=== PATIENT | male | born 1970 | race Caucasian/White ===

== ENCOUNTER 2022-04-19 02:42 | Emergency (ER) | payer OTHER, SELFPAY ==
--- NOTE | 2022-04-19 | ECG_ITS ---
Test Reason : SYNCOPE Blood Pressure : / mmHG Vent. Rate : 086 BPM Atrial Rate : 086 BPM P-R Int : 170 ms QRS Dur : 092 ms QT Int : 374 ms P-R-T Axes : 047 063 053 degrees QTc Int : 447 ms Normal sinus rhythm Normal ECG No previous ECGs available Referred By: Generic ED Physician Electronically Signed By:Kervin Joseph
[2022-04-19 02:47] VITALS: BP 109/70; BP 123/81; PULSE 86; PULSE 90; RESP 16; TEMP 36.5; O2SAT 97; O2SAT 99; BMI 20.9
[2022-04-19] MEDS: 0.9 % Sodium Chloride 1,000 ML 999 ML IV (03:57)
[2022-04-19 04:02] LABS: MANUAL DIFF FLAG NO
[2022-04-19 04:03] LABS: Basophils Percent Auto 0.5 % (0-2); Eosinophils Absolute Auto 0.1 X10*3/uL (0.0-0.4); Eosinophils Percent Auto 1.6 % (0-4); Hematocrit 42.2 % (42.0-52.0); Hemoglobin 14.4 g/dl (14.0-18.0); Imm Gran Abs Auto 0.03 X10*3/uL (0.00-0.03); Imm Gran Pct Auto 0.3 % (0.0-0.4); Lymphocytes Absolute Auto 0.8 X10*3/uL (1.2-4.9); Lymphocytes Percent Auto 8.9 % (20-40); Mean Corpuscular HGB Conc 34.1 g/dl (31.0-36.0); Mean Corpuscular Hemoglobin 31.1 pg (27.0-33.0); Mean Corpuscular Volume 91.1 fL (80.0-98.0); Mean Platelet Volume 10.3 fL (9.4-12.4); Monocytes Absolute Auto 0.8 X10*3/uL (0.1-1.2); Monocytes Percent Auto 9.2 % (2-11); Neutrophils Absolute Auto 6.9 x10*3/uL (2.0-8.3); Neutrophils Percent Auto 79.5 % (45-73); Platelet Count 201 X10*3/uL (160-400); Red Blood Count 4.63 X10*6/uL (4.60-5.80); White Blood Count 8.7 X10*3/uL (4.8-10.8)
[2022-04-19 04:04] VITALS: BP 149/78; PULSE 99; RESP 13; TEMP 36.6; O2SAT 96
[2022-04-19 04:15] LABS: INTERNATIONAL NORM RATIO 0.9 (0.9-1.1); Prothrombin Time 10.6 SEC (10.0-13.1)
[2022-04-19 04:19] LABS: Alanine Aminotransferase 26 U/L (0-40); Albumin Level 4.4 g/dL (3.5-5.0); Alkaline Phosphatase 90 U/L (39-117); Anion Gap 15 (12-20); Aspartate Amino Transferase 24 U/L (5-37); Bilirubin Total 0.8 mg/dL (0.0-1.0); Blood Urea Nitrogen 18 mg/dL (9-16); Calcium 8.9 mg/dL (8.4-10.2); Carbon Dioxide 25 mmol/L (22-29); Chloride 104 mmol/L (96-108); Creatinine Clr Calc Pharmacy 85.6; Estimated Glomerular Filt Rate > 60; Ethanol < 10 mg/dL; Glucose Random 78 mg/dL (60-115); Magnesium 2.2 mg/dL (1.6-2.6); Potassium 3.6 mmol/L (3.3-5.1); Sodium 140 mmol/L (135-145); Total Protein 6.6 g/dL (6.5-8.0)
[2022-04-19 04:22] LABS: Troponin-I High Sensitivity < 3.5 ng/L (<3.5-35.0)
[2022-04-19 04:34] LABS: Amphetamine Screen Urine Not Detected (Not Detect); Barbiturates, Urine Not Detected (Not Detect); Benzodiazepines Screen Urine Not Detected (Not Detect); Cannabinoid Screen Urine Not Detected (Not Detect); Cocaine Screen Urine POSITIVE (Not Detect); Fentanyl, urine Not Detected (Not Detect); Opiate Screen Urine Not Detected (Not Detect); Phencyclidine Screen Urine Not Detected (Not Detect)
[2022-04-19 04:39] LABS: Influenza A PCR POSITIVE (Negative); Influenza B PCR NEGATIVE (Negative); Resp Syncy Virus RNA Qual PCR NEGATIVE (Negative); SARS COV2 PCR INHOUSE NEGATIVE (Negative)
[2022-04-19 06:00] VITALS: BP 121/76; PULSE 98; RESP 16; TEMP 37; O2SAT 95
--- NOTE | 2022-04-19 06:13 | ED.DIZZY ---
HPI - Dizziness General Chief Complaint: Syncope Stated Complaint: ETOH,COCAINE USE Time Seen by Provider: 04/19/22 03:17 Source: patient Mode of arrival: ambulatory Limitations: no limitations History of Present Illness HPI Narrative: Patient been drinking whiskey almost every day last night had 6-8 shots also had cocaine went to bed got up felt dizzy like passing out. Patient also been complaining of cough since yesterday after working in the basement no fever no chills patient passed out while calling 911 no significant head injury patient has been using cocaine almost every day for many years no chest pain no palpitation Related Data Previous Rx's Medication Instructions Recorded benzonatate 200 mg capsule 200 mg PO TID PRN cough #20 caps 04/19/22 oseltamivir 75 mg capsule (Tamiflu) 75 mg PO BID 5 days #10 caps 04/19/22 Allergies Allergy/AdvReac Type Severity Reaction Status Date / Time morphine Allergy Unknown nausea and Verified 12/04/15 00:00 vomiting Review of Systems Review of Systems: Yes all other systems are reviewed and are negative [facility] Social History Social History Smoked in Last 30 Days: Yes Use of substances other than those prescribed or required for medical reasons: Yes Substance Use Type: Crack/Cocaine Advance Directives: No Advance Directives Information Provided: Yes Physical Exam Vital Signs: Vital Signs: Last Vital Signs Temp 98.6 F 04/19/22 06:00 Pulse 98 04/19/22 06:00 Resp 16 04/19/22 06:00 BP 121/76 04/19/22 06:00 Pulse Ox 95 04/19/22 06:00 O2 Del Method 04/19/22 06:00 BMI result Body Mass Index 20.9 Appearance: Alert. Oriented X3. No acute distress. Eyes: Left eye legally blind right pupil 2 mm reacting to light ENT: Pharynx normal. Oral Mucosa moist Neck: Normal inspection. Neck supple. CVS: Normal heart rate and rhythm. Pulses normal. Respiratory: No respiratory distress. Equal air entry bilateral, no wheezing/rales/rhonchi Abdomen: Soft and nontender. Bowel sounds are present, no mass palpable, no CVA tenderness Skin: Skin warm and dry. Normal skin color. Normal skin turgor. Extremities: No lower extremity edema. No calf tenderness Neuro: Oriented X 3. No motor deficit. No sensory deficit.No cerebellar signs , cranial nerves II-XII intact Medications Administered Discontinued Medications Generic Name Dose Route Start Last Admin Trade Name Eleno PRN Reason Stop Dose Admin Sodium Chloride 1,000 mls @ 999 mls/hr 04/19/22 03:46 04/19/22 06:13 Ns IV 04/19/22 04:46 Infused .Q1H1M ONE Infusion Oseltamivir Phosphate 75 mg 04/19/22 06:15 04/19/22 06:28 Oseltamivir Phosphate 75 Mg Capsule PO 04/19/22 06:16 75 mg ONCE ONE Administration Medical Decision Making Medical Decision Making [facility] Narrative: Patient workup showed cocaine positive in the urine and influenza A positive chest x-ray negative CT head negative likely from influenza A patient was feeling weak and dizzy now feeling much better discharge patient home on Tamiflu patient has not received the flu shot Lab Data [facility] Lab Attestation statement: I reviewed the patient's lab results. Result Diagrams: 04/19/22 03:57 04/19/22 03:57 Labs: Lab Results 04/19/22 04/19/22 04/19/22 Range/Units 03:56 03:57 03:57 WBC 8.7 (4.8-10.8) X10*3/uL RBC 4.63 (4.60-5.80) X10*6/uL Hgb 14.4 (14.0-18.0) g/dl Hct 42.2 (42.0-52.0) % MCV 91.1 (80.0-98.0) fL MCH 31.1 (27.0-33.0) pg MCHC 34.1 (31.0-36.0) g/dl RDW 13.0 (11.0-16.0) % Plt Count 201 (160-400) X10*3/uL MPV 10.3 (9.4-12.4) fL Immature Gran % (Auto) 0.3 (0.0-0.4) % Neut % (Auto) 79.5 H (45-73) % Lymph % (Auto) 8.9 L (20-40) % Christian % (Auto) 9.2 (2-11) % Eos % (Auto) 1.6 (0-4) % Baso % (Auto) 0.5 (0-2) % Lymph # (Auto) 0.8 L (1.2-4.9) X10*3/uL Christian # (Auto) 0.8 (0.1-1.2) X10*3/uL Eos # (Auto) 0.1 (0.0-0.4) X10*3/uL Baso # (Auto) 0.0 (0.0-0.2) X10*3/uL Abs Immat Gran (auto) 0.03 (0.00-0.03) X10*3/uL Absolute Neuts (auto) 6.9 (2.0-8.3) x10*3/uL Absolute Nucleated RBC 0.000 (0.0-0.012) X10*3/uL Nucleated RBC % (auto) 0.0 (0.0-0.2) /100WBC PT 10.6 (10.0-13.1) SEC INR 0.9 (0.9-1.1) Sodium (135-145) mmol/L Potassium (3.3-5.1) mmol/L Chloride (96-108) mmol/L Carbon Dioxide (22-29) mmol/L Anion Gap (12-20) BUN (9-16) mg/dL Creatinine (0.5-1.4) mg/dL Estim Creat Clear Calc Estimated GFR Random Glucose (60-115) mg/dL Calcium (8.4-10.2) mg/dL Magnesium (1.6-2.6) mg/dL Total Bilirubin (0.0-1.0) mg/dL AST (5-37) U/L ALT (0-40) U/L Alkaline Phosphatase (39-117) U/L Troponin I High Sens (<3.5-35.0) ng/L Total Protein (6.5-8.0) g/dL Albumin (3.5-5.0) g/dL Urine Opiates Screen (Not Detect) Urine Fentanyl Screen (Not Detect) Ur Barbiturates Screen (Not Detect) Ur Phencyclidine Scrn (Not Detect) Ur Amphetamines Screen (Not Detect) U Benzodiazepines Scrn (Not Detect) Urine Cocaine Screen (Not Detect) U Marijuana (THC) Screen (Not Detect) Ethyl Alcohol mg/dL Influenza Type A (PCR) POSITIVE A (Negative) Influenza Type B (PCR) NEGATIVE (Negative) RSV RNA Qual (PCR) NEGATIVE (Negative) SARS-CoV-2 RNA (RT-PCR) NEGATIVE (Negative) 04/19/22 04/19/22 04/19/22 Range/Units 03:57 03:57 04:09 WBC (4.8-10.8) X10*3/uL RBC (4.60-5.80) X10*6/uL Hgb (14.0-18.0) g/dl Hct (42.0-52.0) % MCV (80.0-98.0) fL MCH (27.0-33.0) pg MCHC (31.0-36.0) g/dl RDW (11.0-16.0) % Plt Count (160-400) X10*3/uL MPV (9.4-12.4) fL Immature Gran % (Auto) (0.0-0.4) % Neut % (Auto) (45-73) % Lymph % (Auto) (20-40) % Christian % (Auto) (2-11) % Eos % (Auto) (0-4) % Baso % (Auto) (0-2) % Lymph # (Auto) (1.2-4.9) X10*3/uL Christian # (Auto) (0.1-1.2) X10*3/uL Eos # (Auto) (0.0-0.4) X10*3/uL Baso # (Auto) (0.0-0.2) X10*3/uL Abs Immat Gran (auto) (0.00-0.03) X10*3/uL Absolute Neuts (auto) (2.0-8.3) x10*3/uL Absolute Nucleated RBC (0.0-0.012) X10*3/uL Nucleated RBC % (auto) (0.0-0.2) /100WBC PT (10.0-13.1) SEC INR (0.9-1.1) Sodium 140 (135-145) mmol/L Potassium 3.6 (3.3-5.1) mmol/L Chloride 104 (96-108) mmol/L Carbon Dioxide 25 (22-29) mmol/L Anion Gap 15 (12-20) BUN 18 H (9-16) mg/dL Creatinine 0.95 (0.5-1.4) mg/dL Estim Creat Clear Calc 85.6 Estimated GFR > 60 Random Glucose 78 (60-115) mg/dL Calcium 8.9 (8.4-10.2) mg/dL Magnesium 2.2 (1.6-2.6) mg/dL Total Bilirubin 0.8 (0.0-1.0) mg/dL AST 24 (5-37) U/L ALT 26 (0-40) U/L Alkaline Phosphatase 90 (39-117) U/L Troponin I High Sens < 3.5 (<3.5-35.0) ng/L Total Protein 6.6 (6.5-8.0) g/dL Albumin 4.4 (3.5-5.0) g/dL Urine Opiates Screen Not Detected (Not Detect) Urine Fentanyl Screen Not Detected (Not Detect) Ur Barbiturates Screen Not Detected (Not Detect) Ur Phencyclidine Scrn Not Detected (Not Detect) Ur Amphetamines Screen Not Detected (Not Detect) U Benzodiazepines Scrn Not Detected (Not Detect) Urine Cocaine Screen POSITIVE H (Not Detect) U Marijuana (THC) Screen Not Detected (Not Detect) Ethyl Alcohol < 10 mg/dL Influenza Type A (PCR) (Negative) Influenza Type B (PCR) (Negative) RSV RNA Qual (PCR) (Negative) SARS-CoV-2 RNA (RT-PCR) (Negative) Independent Interpretation I performed an independent interpretation of an: EKG Interpretation: Normal sinus rhythm heart rate 86 beats per minute normal interval normal axis no acute changes no acute ischemia impression normal EKG Discharge Plan Discharge Clinical Impression: Influenza A, Cocaine abuse, Alcohol abuse Patient Disposition: Home, Self-Care Instructions: Cocaine Abuse (ED), Influenza (ED), Alcohol Use Disorder (ED) Additional Instructions: Drink plenty of fluids Stop using cocaine and alcohol Take Tamiflu twice daily for 5 days Cough drops as advised Prescriptions: New oseltamivir [Tamiflu] 75 mg capsule 75 mg PO BID 5 Days Qty: 10 0RF benzonatate 200 mg capsule 200 mg PO TID PRN (Reason: cough) Qty: 20 0RF
[2022-04-19] MEDS: Oseltamivir Phosphate 75 MG CAPSULE PO (06:28)
--- NOTE | 2022-04-19 06:31 | PC.NURSE ---
pt medicated according to mar. pt making calls to find ride home once discharged using [employer] phone
== END 2022-04-19 07:41 | disposition home or self-care (01) ==
PROVIDERS: Emergency Provider Internal Medicine; PCP Internal Medicine
DX: J10.1 Influenza due to other identified influenza virus with other respiratory manifestations (principal); R55 Syncope and collapse; F14.10 Cocaine abuse, uncomplicated; F10.10 Alcohol abuse, uncomplicated; Y90.0 Blood alcohol level of less than 20 mg/100 ml; Z20.822 Contact with and (suspected) exposure to COVID-19; Z79.899 Other long term (current) drug therapy
CPT/HCPCS: 0241U; 36415; 70450; 71045; 80053; 80307; 82077; 83735; 84484; 85025; 85610; 93005; 96360; 96361; 99285

== ENCOUNTER 2022-06-15 11:33 | Emergency (ER) | payer OTHER, SELFPAY ==
--- NOTE | 2022-06-15 11:35 | ECG_ITS ---
Test Reason : palpitations Blood Pressure : / mmHG Vent. Rate : 097 BPM Atrial Rate : 097 BPM P-R Int : 148 ms QRS Dur : 092 ms QT Int : 350 ms P-R-T Axes : 068 077 059 degrees QTc Int : 444 ms Normal sinus rhythm Normal ECG When compared with ECG of 19-APR-2022 02:47, No significant change was found Referred By: Generic ED Physician Electronically Signed By:Kervin Joseph
[2022-06-15 12:21] VITALS: BP 128/77; PULSE 74; RESP 14; TEMP 36.5; O2SAT 98; BMI 29.0
[2022-06-15 12:23] VITALS: PULSE 73
[2022-06-15 12:26] LABS: MANUAL DIFF FLAG NO
--- NOTE | 2022-06-15 12:26 | ED_ITS ---
HPI - Arrhythmia/Palpitations General Chief Complaint: Arrhythmia/Palpitations Stated Complaint: palpations Time Seen by Provider: 06/15/22 11:56 Source: patient Limitations: no limitations History of Present Illness HPI narrative: Patient presents complaining of palpitations since yesterday, he has history of cocaine abuse. Denies any chest pain shortness of breath denies any fever vomiting complaint: rapid heart beat and heart racing Onset (ago): day(s) (1) Duration: intermittent Severity: mild Context: occurred during rest Associated symptoms: denies other symptoms Related Data Previous Rx's Medication Instructions Recorded benzonatate 200 mg capsule 200 mg PO TID PRN cough #20 caps 04/19/22 oseltamivir 75 mg capsule (Tamiflu) 75 mg PO BID 5 days #10 caps 04/19/22 Allergies Allergy/AdvReac Type Severity Reaction Status Date / Time morphine Allergy Unknown nausea and Verified 06/15/22 12:23 vomiting Review of Systems Constitutional: Constitutional: Reports no additional constitutional complaints ENT: Reports system reviewed and no additional complaints, except as documented Cardiovascular: Cardiovascular: Reports no additional cardiovascular complaints Gastrointestinal: Gastrointestinal: Reports no additional gastrointestinal complaints [facility] Past Medical History [facility] Narrative: History of cocaine abuse disorder Social History Social History Substance Use Type: Crack/Cocaine Advance Directives: No Advance Directives Information Provided: Yes Physical Exam Vital Signs: Vital Signs: Last Vital Signs Temp 98.3 F 06/15/22 15:46 Pulse 76 06/15/22 15:46 Resp 16 06/15/22 15:46 BP 111/76 06/15/22 15:46 Pulse Ox 98 06/15/22 15:46 O2 Del Method 06/15/22 15:46 BMI result Body Mass Index 29.0 Const: General: cooperative, comfortable, no acute distress, well developed, alert and awake Nutritional Appearance: average body habitus and well nourished Orientation/consciousness: patient oriented x3 Limitations: no limitations HEENT: Head: Yes normal to inspection General nose exam: Normal external nose present Face and sinus: Yes normal facial exam Mouth: Normal oral and palatal mucosa present Neck: Neck: Yes normal visual inspection Chest: Chest palpation & inspection: normal inspection of the chest Resp: Effort & Inspection: normal respiratory effort Auscultation: clear to auscultation bilaterally Cardio: Rate: regular rate Rhythm: regular rhythm GI: Inspection: Yes normal to inspection Palpation (GI): Soft to palpation, not firm, nontender and no guarding Skin: General skin exam: no rashes or lesions noted and elasticity normal Rashes: no rashes Neuro: General: patient oriented x3 Extrem: General: Yes normal to inspection, Yes full ROM, Yes capillary refill normal and Yes normal exam except as noted Course Reevaluation(s) Reevaluation #1: FEELS BETTER HE WAS MONITORED MORE THAN 3 HOURS REMAINED IN SINUS RHYTHM,TROPI NEGATIVE,MOST LIKELY RELATED TO COCAINE USE Time: 15:56 Medications Administered Discontinued Medications Generic Name Dose Route Start Last Admin Trade Name Ryanq PRN Reason Stop Dose Admin Lorazepam 1 mg 06/15/22 15:36 06/15/22 15:44 Lorazepam 1 Mg Tablet PO 06/15/22 15:37 1 mg ONCE ONE Administration Medical Decision Making Medical Decision Making [facility] Narrative: Patient presented with palpitation will do EKG labs reassessed 03 55 pm FEELS BETTERSINUS ON THE MONITOR,TROPI NEGATIVE,MOST LIKELY RELATED TO COCAINE Differential Diagnosis Differential Diagnoses: The differential diagnosis associated with the presentation includes A fever/SVT/anxiety Admission/Observation Consideration of admission/observation: Escalation of care including admission/observation considered Lab Data [facility] Lab Attestation statement: I reviewed the patient's lab results. 06/15/22 12:17 06/15/22 12:17 Labs: Lab Results 06/15/22 06/15/22 06/15/22 Range/Units 12:17 12:17 12:17 WBC 10.8 (4.8-10.8) X10*3/uL RBC 5.02 (4.60-5.80) X10*6/uL Hgb 15.8 (14.0-18.0) g/dl Hct 46.3 (42.0-52.0) % MCV 92.2 (80.0-98.0) fL MCH 31.5 (27.0-33.0) pg MCHC 34.1 (31.0-36.0) g/dl RDW 12.6 (11.0-16.0) % Plt Count 224 (160-400) X10*3/uL MPV 11.0 (9.4-12.4) fL Immature Gran % (Auto) 0.4 (0.0-0.4) % Neut % (Auto) 64.3 (45-73) % Lymph % (Auto) 24.3 (20-40) % Campbell % (Auto) 8.3 (2-11) % Eos % (Auto) 2.0 (0-4) % Baso % (Auto) 0.7 (0-2) % Lymph # (Auto) 2.6 (1.2-4.9) X10*3/uL Campbell # (Auto) 0.9 (0.1-1.2) X10*3/uL Eos # (Auto) 0.2 (0.0-0.4) X10*3/uL Baso # (Auto) 0.1 (0.0-0.2) X10*3/uL Abs Immat Gran (auto) 0.04 H (0.00-0.03) X10*3/uL Absolute Neuts (auto) 6.9 (2.0-8.3) x10*3/uL Absolute Nucleated RBC 0.000 (0.0-0.012) X10*3/uL Nucleated RBC % (auto) 0.0 (0.0-0.2) /100WBC PT 10.4 (10.0-13.1) SEC INR 0.9 (0.9-1.1) Sodium 139 (135-145) mmol/L Potassium 3.8 (3.3-5.1) mmol/L Chloride 103 (96-108) mmol/L Carbon Dioxide 22 (22-29) mmol/L Anion Gap 18 (12-20) BUN 15 (9-16) mg/dL Creatinine 1.11 (0.5-1.4) mg/dL Estim Creat Clear Calc 80.7 Estimated GFR > 60 Random Glucose 78 (60-115) mg/dL Calcium 9.2 (8.4-10.2) mg/dL Magnesium 1.9 (1.6-2.6) mg/dL Total Bilirubin 0.7 (0.0-1.0) mg/dL Direct Bilirubin 0.2 (0.0-0.5) mg/dL AST 20 (5-37) U/L ALT 14 (0-40) U/L Alkaline Phosphatase 87 (39-117) U/L Troponin I High Sens (<3.5-35.0) ng/L Total Protein 7.1 (6.5-8.0) g/dL Albumin 4.7 (3.5-5.0) g/dL COVID-19 ([facility]) (Negative) COVID-19 Clin Com 06/15/22 06/15/22 Range/Units 12:17 12:17 WBC (4.8-10.8) X10*3/uL RBC (4.60-5.80) X10*6/uL Hgb (14.0-18.0) g/dl Hct (42.0-52.0) % MCV (80.0-98.0) fL MCH (27.0-33.0) pg MCHC (31.0-36.0) g/dl RDW (11.0-16.0) % Plt Count (160-400) X10*3/uL MPV (9.4-12.4) fL Immature Gran % (Auto) (0.0-0.4) % Neut % (Auto) (45-73) % Lymph % (Auto) (20-40) % Campbell % (Auto) (2-11) % Eos % (Auto) (0-4) % Baso % (Auto) (0-2) % Lymph # (Auto) (1.2-4.9) X10*3/uL Campbell # (Auto) (0.1-1.2) X10*3/uL Eos # (Auto) (0.0-0.4) X10*3/uL Baso # (Auto) (0.0-0.2) X10*3/uL Abs Immat Gran (auto) (0.00-0.03) X10*3/uL Absolute Neuts (auto) (2.0-8.3) x10*3/uL Absolute Nucleated RBC (0.0-0.012) X10*3/uL Nucleated RBC % (auto) (0.0-0.2) /100WBC PT (10.0-13.1) SEC INR (0.9-1.1) Sodium (135-145) mmol/L Potassium (3.3-5.1) mmol/L Chloride (96-108) mmol/L Carbon Dioxide (22-29) mmol/L Anion Gap (12-20) BUN (9-16) mg/dL Creatinine (0.5-1.4) mg/dL Estim Creat Clear Calc Estimated GFR Random Glucose (60-115) mg/dL Calcium (8.4-10.2) mg/dL Magnesium (1.6-2.6) mg/dL Total Bilirubin (0.0-1.0) mg/dL Direct Bilirubin (0.0-0.5) mg/dL AST (5-37) U/L ALT (0-40) U/L Alkaline Phosphatase (39-117) U/L Troponin I High Sens < 3.5 (<3.5-35.0) ng/L Total Protein (6.5-8.0) g/dL Albumin (3.5-5.0) g/dL COVID-19 (GEMA) Negative (Negative) COVID-19 Clin Com See Note Independent Interpretation I performed an independent interpretation of an: EKG Interpretation: Normal sinus rhythm no ST-T changes rate 97 Discharge Plan Discharge Clinical Impression: Palpitations Patient Disposition: Home, Self-Care Instructions: Heart Palpitations (DC) Additional Instructions: FOLLOW-UP WITH YOUR PRIMARY CARE PHYSICIAN RETURN IF YOU WORSE ANY CONCERN Prescriptions: No Action oseltamivir [Tamiflu] 75 mg capsule 75 mg PO BID 5 Days Qty: 10 0RF benzonatate 200 mg capsule 200 mg PO TID PRN (Reason: cough) Qty: 20 0RF Referrals: Jia Meza MD [Primary Care Provider] - 06/17/22
--- NOTE | 2022-06-15 12:28 | PC.NURSE ---
Alert and oriented, resp even and unlabored. NSR on case monitor. Admits to cocaine use yesterday. Labs obtained call rose within reach
[2022-06-15 12:38] LABS: Basophils Absolute Auto 0.1 X10*3/uL (0.0-0.2); Basophils Percent Auto 0.7 % (0-2); Eosinophils Absolute Auto 0.2 X10*3/uL (0.0-0.4); Hematocrit 46.3 % (42.0-52.0); Hemoglobin 15.8 g/dl (14.0-18.0); Imm Gran Abs Auto 0.04 X10*3/uL (0.00-0.03); Imm Gran Pct Auto 0.4 % (0.0-0.4); Lymphocytes Absolute Auto 2.6 X10*3/uL (1.2-4.9); Lymphocytes Percent Auto 24.3 % (20-40); Mean Corpuscular HGB Conc 34.1 g/dl (31.0-36.0); Mean Corpuscular Hemoglobin 31.5 pg (27.0-33.0); Mean Corpuscular Volume 92.2 fL (80.0-98.0); Monocytes Absolute Auto 0.9 X10*3/uL (0.1-1.2); Monocytes Percent Auto 8.3 % (2-11); Neutrophils Absolute Auto 6.9 x10*3/uL (2.0-8.3); Neutrophils Percent Auto 64.3 % (45-73); Platelet Count 224 X10*3/uL (160-400); Red Blood Count 5.02 X10*6/uL (4.60-5.80); Red Cell Distribution Width 12.6 % (11.0-16.0); White Blood Count 10.8 X10*3/uL (4.8-10.8)
[2022-06-15 12:48] LABS: Alanine Aminotransferase 14 U/L (0-40); Albumin Level 4.7 g/dL (3.5-5.0); Alkaline Phosphatase 87 U/L (39-117); Anion Gap 18 (12-20); Aspartate Amino Transferase 20 U/L (5-37); Bilirubin Direct 0.2 mg/dL (0.0-0.5); Bilirubin Total 0.7 mg/dL (0.0-1.0); Blood Urea Nitrogen 15 mg/dL (9-16); Calcium 9.2 mg/dL (8.4-10.2); Carbon Dioxide 22 mmol/L (22-29); Chloride 103 mmol/L (96-108); Creatinine Clr Calc Pharmacy 80.7; Estimated Glomerular Filt Rate > 60; Glucose Random 78 mg/dL (60-115); Magnesium 1.9 mg/dL (1.6-2.6); Potassium 3.8 mmol/L (3.3-5.1); Sodium 139 mmol/L (135-145); Total Protein 7.1 g/dL (6.5-8.0)
[2022-06-15 12:52] LABS: INTERNATIONAL NORM RATIO 0.9 (0.9-1.1); Prothrombin Time 10.4 SEC (10.0-13.1)
[2022-06-15 12:55] LABS: COVID-19 Test Negative (Negative); IDNOW Serial# 55D5AD1C; Troponin-I High Sensitivity < 3.5 ng/L (<3.5-35.0)
[2022-06-15] MEDS: LORazepam 1 MG TABLET PO (15:44)
[2022-06-15 15:46] VITALS: BP 111/76; PULSE 76; RESP 16; TEMP 36.8; O2SAT 98
== END 2022-06-15 16:02 | disposition home or self-care (01) ==
PROVIDERS: Nurse Practitioner Family; Emergency Provider Emergency Medicine; PCP Internal Medicine
DX: R00.2 Palpitations (principal); F14.10 Cocaine abuse, uncomplicated; Z20.822 Contact with and (suspected) exposure to COVID-19
CPT/HCPCS: 36415; 80048; 80076; 83735; 84484; 85025; 85610; 87635; 93005; 99283; 99285

== ENCOUNTER 2023-02-02 01:44 | Emergency (ER) | payer OTHER, SELFPAY ==
[2023-02-02 01:52] VITALS: BP 124/73; BP 140/90; PULSE 91; PULSE 98; RESP 20; TEMP 36.8; O2SAT 98; O2SAT 99; BMI 19.5
--- NOTE | 2023-02-02 02:14 | ED.ABDPAIN ---
HPI - Abdominal Pain General Chief Complaint: Abdominal Pain Stated Complaint: ABD PAIN Time Seen by Provider: 02/02/23 02:10 Source: patient Mode of arrival: EMS Limitations: no limitations History of Present Illness HPI narrative: Patient comes in the emergency room complaining of diffuse abdominal pain that started approximately 3 hours prior to arrival. Patient states that it started out in the groin, radiating up towards the upper abdomen and then towards the back. Patient reports feeling very nauseous, no diarrhea. Patient denies any recent illnesses. Patient states he has no history of kidney stones. Patient requesting not to get any narcotics because he has a Related Data Previous Rx's Medication Instructions Recorded benzonatate 200 mg capsule 200 mg PO TID PRN cough #20 caps 04/19/22 oseltamivir 75 mg capsule (Tamiflu) 75 mg PO BID 5 days #10 caps 04/19/22 levofloxacin 500 mg tablet 500 mg PO DAILY #7 tabs 02/02/23 Allergies Allergy/AdvReac Type Severity Reaction Status Date / Time morphine Allergy Unknown nausea and Verified 02/02/23 01:51 vomiting Review of Systems Review of Systems Constitutional : No Weight loss, No Fever, No Chills, No Night Sweats, No Fatigue, No Malaise ENT/Mouth : No Hearing loss, No Ear Pain, No Nasal Congestion, No Sinus Pain, No Hoarseness, No sore throat, No Rhinorrhea, No Swallowing Difficulty Eyes: No Eye Pain, No Swelling, No Redness, No Foreign Body, No Discharge, No Vision Changes Cardiovascular : No Chest Pain, No SOB, No Dyspnea on Exertion, No Orthopnea, No Edema, No Palpitations Respiratory : No Cough, No Sputum, No Wheezing, No Smoke Exposure, No Dyspnea Gastrointestinal : No Nausea, No Vomiting, No Diarrhea, No Constipation, complaining of abdominal pain, No Hematochezia, No Melena Genitourinary : no irregular bleeding, No Dysuria, No Urinary Frequency, No Hematuria, No Urinary Incontinence, No Urgency, No Flank Pain, No Urinary Flow Changes, No Hesitancy Musculoskeletal : No joint pain, No Myalgias, No Joint Swelling Skin : No Skin Lesions, No rash Neuro : No Weakness, No Numbness, No Paresthesias, No Loss of Consciousness, No Dizziness, No Headache Psych : No Anxiety/Panic, No Depression, No SI/HI/AH/VH, No Social Issues, Heme/Lymph: No Bruising, No Bleeding,No Lymphadenopathy Endocrine : No Polyuria, No Polydipsia, No Temperature Intolerance [facility] Social History Social History Substance Use Type: Crack/Cocaine Advance Directives: No Advance Directives Information Provided: No Physical Exam ED Vital Signs: Vital Signs - 24 hr 02/02/23 01:52 02/02/23 04:39 Temperature 98.2 F 98.3 F Pulse Rate 91 86 Respiratory Rate 20 16 Blood Pressure 124/73 119/69 Pulse Oximetry 99 96 Oxygen Delivery Method Room Air Room Air BMI result Body Mass Index 19.5 Const Other: Appearance: Alert. Oriented X3. No acute distress. Eyes: Pupils equal, round and reactive to light. ENT: Pharynx normal. Neck: Normal inspection. Neck supple. No lymph nodes noted. No crepitus CVS: Normal heart rate and rhythm. Pulses normal. Normal S1 and S2 Respiratory: No respiratory distress. Breath sounds normal. No Wheezing. No rales Abdomen: Soft , mild discomfort to palpation over suprapubic area, no rebound, no guarding. No rigidity. No distention. Skin: Skin warm and dry. Normal skin color. Normal skin turgor. Extremities: No lower extremity edema. No Lacerations. No Rash Neuro: Oriented X 3. No motor deficit. No sensory deficit. Moving all extremities. No slurred speech. CN 2 through 12 grossly intact Psych: calm, cooperative, normal affect Medical Decision Making Medical Decision Making [facility] Narrative: -I discussed the labs with the patient, white blood cell count 14.0. Patient's creatinine 1.85. Patient was given IV fluids, ketorolac. -patient overall feeling much better. Patient instructed to follow-up with his primary care physician to recheck creatinine -discussed with the patient he has a urinary tract infection. -my interpretation of CT scan, questionably kidney stones on the left. -radiology report, no ureterolithiasis. -patient given Levaquin in the emergency room. -patient has a fever, normal blood pressure, sepsis not suspected Differential Diagnosis Differential Diagnoses: The differential diagnosis associated with the presentation includes (UTI, pyelonephritis) Admission/Observation Consideration of admission/observation: Escalation of care including admission/observation considered (Given the patient's presentation, admission was considered) Lab Data [facility] Lab Attestation statement: I reviewed the patient's lab results. 02/02/23 02:19 02/02/23 02:19 Labs: Lab Results 02/02/23 02/02/23 Range/Units 02:19 05:24 WBC 14.0 H (4.8-10.8) X10*3/uL RBC 5.00 (4.60-5.80) X10*6/uL Hgb 15.9 (14.0-18.0) g/dl Hct 45.0 (42.0-52.0) % MCV 90.0 (80.0-98.0) fL MCH 31.8 (27.0-33.0) pg MCHC 35.3 (31.0-36.0) g/dl RDW 13.0 (11.0-16.0) % Plt Count 210 (160-400) X10*3/uL MPV 10.5 (9.4-12.4) fL Immature Gran % (Auto) 0.3 (0.0-0.4) % Neut % (Auto) 71.4 (45-73) % Lymph % (Auto) 15.9 L (20-40) % [place] % (Auto) 10.9 (2-11) % Eos % (Auto) 1.0 (0-4) % Baso % (Auto) 0.5 (0-2) % Lymph # (Auto) 2.2 (1.2-4.9) X10*3/uL [place] # (Auto) 1.5 H (0.1-1.2) X10*3/uL Eos # (Auto) 0.1 (0.0-0.4) X10*3/uL Baso # (Auto) 0.1 (0.0-0.2) X10*3/uL Abs Immat Gran (auto) 0.04 H (0.00-0.03) X10*3/uL Absolute Neuts (auto) 10.0 H (2.0-8.3) x10*3/uL Absolute Nucleated RBC 0.000 (0.0-0.012) X10*3/uL Nucleated RBC % (auto) 0.0 (0.0-0.2) /100WBC Smear Tech's Comments VERIFIED Sodium 142 (135-145) mmol/L Potassium 4.0 (3.3-5.1) mmol/L Chloride 103 (96-108) mmol/L Carbon Dioxide 23 (22-29) mmol/L Anion Gap 20 (12-20) BUN 16 (9-16) mg/dL Creatinine 1.85 H (0.5-1.4) mg/dL Estim Creat Clear Calc 40.4 Estimated GFR 39 Random Glucose 86 (60-115) mg/dL Lactic Acid 1.9 (0.5-2.0) mmol/L Calcium 9.9 D (8.4-10.2) mg/dL Magnesium 1.8 (1.6-2.6) mg/dL Total Bilirubin 0.5 (0.0-1.0) mg/dL Direct Bilirubin 0.2 (0.0-0.5) mg/dL AST 21 (5-37) U/L ALT 14 (0-40) U/L Alkaline Phosphatase 83 (39-117) U/L Troponin I High Sens < 2.7 (<3.5-35.0) ng/L Total Protein 7.3 (6.5-8.0) g/dL Albumin 4.5 (3.5-5.0) g/dL Lipase 29 (8-78) U/L Urine Color Yellow Urine Appearance Clear Urine pH 7.5 (5.0-9.0) Ur Specific [place] 1.015 (1.005-1.025) Urine Protein 300 (3+) H (Neg-Trace) mg/dL Urine Glucose (UA) Negative (Negative) mg/dL Urine Ketones Negative (Negative) mg/dL Urine Blood Negative (Negative) Urine Nitrite Negative (Negative) Ur Leukocyte Esterase Trace H (Negative) Urine RBC 0-2 (0-2) /HPF Urine WBC 6-10 H (0-5) /HPF Ur Squamous Epith Cells 0-2 (0-2) /HPF Urine Bacteria None Seen (None Seen) Hyaline Casts 3-5 (0-2) /LPF Ethyl Alcohol 14 mg/dL Independent Interpretation I performed an independent interpretation of an: CT Scan Radiology Impression Discussion of test interpretation with radiology: I have reviewed the radiologist's reading. Radiologist Impression: FINDINGS: LUNG BASES: The visualized lung bases are unremarkable. LIVER, GALLBLADDER, AND BILIARY TREE: The liver is normal in size, shape, and attenuation. No focal hepatic lesion or biliary ductal dilatation is present. The gallbladder is unremarkable with no evidence of radiopaque gallstones, gallbladder wall thickening, or obvious pericholecystic inflammatory changes. PANCREAS: Unremarkable. SPLEEN: Unremarkable. ADRENAL GLANDS: Unremarkable. KIDNEYS AND URETERS: The kidneys are normal in size, shape, and attenuation. No hydronephrosis, hydroureter, or calculi seen. No perinephric stranding. BLADDER: Unremarkable. GASTROINTESTINAL TRACT: The small and large bowel are unremarkable. The appendix is unremarkable. ABDOMINAL WALL: No significant hernia is appreciated. LYMPH NODES: Normal. VASCULAR: There is atherosclerotic plaque of the abdominal aorta. PELVIC VISCERA: Unremarkable. OSSEOUS STRUCTURES: There is bilateral L5 spondylolysis. CT/CT abdomen pelvis wo IV con IMPRESSION: No acute intra-abdominal process. Fleischner guidelines were followed. Medications Administered Discontinued Medications Generic Name Dose Route Start Last Admin Trade Name Freq PRN Reason Stop Dose Admin Sodium Chloride 1,000 mls @ 999 mls/hr 02/02/23 02:46 02/02/23 04:12 Ns IVCONT 02/02/23 03:46 Infused .Q1H1M ONE Infusion Ketorolac Tromethamine 30 mg 02/02/23 02:10 02/02/23 02:15 Ketorolac Tromethamine 30 Mg/Ml Vial IVPUSH 02/02/23 02:11 30 mg ONCE ONE Administration Critical Care Time Critical Care Time Critical Care Time: Yes Total Critical Care Time: 60 Attestation: I have personally provided critical care time. Time includes review of lab data, radiology results, discussion with consultants, and monitoring for potential decompensation. Intervention performed as documented. Discharge Plan Discharge Clinical Impression: Acute UTI Patient Disposition: Home, Self-Care Instructions: Urinary Tract Infection in Men (ED) Additional Instructions: Please follow-up with your primary care physician tomorrow. If you have any worsening or new symptoms, please return to the emergency room or call 911 Prescriptions: New levofloxacin 500 mg tablet 500 mg PO DAILY Qty: 7 0RF No Action oseltamivir [Tamiflu] 75 mg capsule 75 mg PO BID 5 Days Qty: 10 0RF benzonatate 200 mg capsule 200 mg PO TID PRN (Reason: cough) Qty: 20 0RF
[2023-02-02 02:28] LABS: Basophils Absolute Auto 0.1 X10*3/uL (0.0-0.2); Basophils Percent Auto 0.5 % (0-2); Eosinophils Absolute Auto 0.1 X10*3/uL (0.0-0.4); Hemoglobin 15.9 g/dl (14.0-18.0); Imm Gran Abs Auto 0.04 X10*3/uL (0.00-0.03); Imm Gran Pct Auto 0.3 % (0.0-0.4); Lymphocytes Absolute Auto 2.2 X10*3/uL (1.2-4.9); Lymphocytes Percent Auto 15.9 % (20-40); MANUAL DIFF FLAG SCAN; Mean Corpuscular HGB Conc 35.3 g/dl (31.0-36.0); Mean Corpuscular Hemoglobin 31.8 pg (27.0-33.0); Mean Platelet Volume 10.5 fL (9.4-12.4); Monocytes Absolute Auto 1.5 X10*3/uL (0.1-1.2); Monocytes Percent Auto 10.9 % (2-11); Neutrophils Percent Auto 71.4 % (45-73); Platelet Count 210 X10*3/uL (160-400); SCAN SMEAR FLAG 1
[2023-02-02 02:40] LABS: Lactic Acid 1.9 mmol/L (0.5-2.0)
[2023-02-02 02:43] LABS: Ethanol 14 mg/dL; Magnesium 1.8 mg/dL (1.6-2.6)
[2023-02-02 02:44] LABS: Alanine Aminotransferase 14 U/L (0-40); Albumin Level 4.5 g/dL (3.5-5.0); Alkaline Phosphatase 83 U/L (39-117); Anion Gap 20 (12-20); Aspartate Amino Transferase 21 U/L (5-37); Bilirubin Direct 0.2 mg/dL (0.0-0.5); Bilirubin Total 0.5 mg/dL (0.0-1.0); Blood Urea Nitrogen 16 mg/dL (9-16); Calcium 9.9 mg/dL (8.4-10.2); Carbon Dioxide 23 mmol/L (22-29); Chloride 103 mmol/L (96-108); Creatinine Clr Calc Pharmacy 40.4; Estimated Glomerular Filt Rate 39; Glucose Random 86 mg/dL (60-115); Lipase 29 U/L (8-78); Sodium 142 mmol/L (135-145); Total Protein 7.3 g/dL (6.5-8.0)
[2023-02-02 02:49] LABS: SLIDE REVIEW VERIFIED
[2023-02-02 02:54] LABS: Troponin-I High Sensitivity < 2.7 ng/L (<3.5-35.0)
[2023-02-02 04:39] VITALS: BP 119/69; PULSE 86; RESP 16; TEMP 36.8; O2SAT 96
--- NOTE | 2023-02-02 04:40 | MHC.EDTECH ---
Hourly rounds and vitals completed, patient is resting comfortably and watching TV at this time. Attempted to get a urine sample, patient is unable to give at this time will re-attempt.
[2023-02-02 06:09] VITALS: BP 97/44; PULSE 79; RESP 16; TEMP 36.6; O2SAT 98
== END 2023-02-02 06:16 | disposition home or self-care (01) ==
PROVIDERS: Emergency Provider Emergency Medicine
DX: N39.0 Urinary tract infection, site not specified (principal); R10.10 Upper abdominal pain, unspecified; M54.50 Low back pain, unspecified; R10.13 Epigastric pain; R11.2 Nausea with vomiting, unspecified; R94.31 Abnormal electrocardiogram [ECG] [EKG]; Z79.899 Other long term (current) drug therapy
CPT/HCPCS: 36415; 74176; 80048; 80076; 80307; 81001; 83605; 83690; 83735; 84484; 85025; 87040; 87086; 93005; 96361; 96374; 99285; J1885